=== PATIENT | male | born 1990 | race Two or more races ===

== ENCOUNTER 2023-12-31 08:41 | Outpatient (OUT) | payer BC, SELFPAY ==
[2023-12-31 08:57] LABS: Basophils Absolute Auto 0.1 10^3/uL (0.0-0.1); Basophils Percent Auto 0.8 % (0.2-2.0); Eosinophils Absolute Auto 0.2 10^3/uL (0.0-0.7); Eosinophils Percent Auto 3.3 % (0.9-7.0); Hematocrit 43.5 % (42.0-54.0); Hemoglobin 14.6 g/dL (14.0-18.0); Immature Granulocytes Abs Auto 0.02 10^3/uL (0.00-0.03); Immature Granulocytes Pct Auto 0.3 % (0.0-0.5); Lymphocytes Absolute Auto 1.5 10^3/uL (1.2-3.8); Mean Corpuscular HGB Conc 33.6 g/dL (29.9-35.2); Mean Corpuscular Hemoglobin 28.9 pg (25.9-34.0); Mean Corpuscular Volume 86.1 fL (80.0-94.0); Mean Platelet Volume 10.1 fL (9.5-13.5); Monocytes Absolute Auto 0.6 10^3/uL (0.3-0.8); Monocytes Percent Auto 8.4 % (1.7-12.0); Neutrophils Absolute Auto 4.8 10^3/uL (1.4-6.5); Neutrophils Percent Auto 66.2 % (43.0-75.0); Platelet Count 259 10^3/uL (150-450); Red Blood Count 5.05 10^6/uL (4.70-6.10); Red Cell Distribution Width 13.9 % (11.0-15.0); White Blood Count 7.3 10^3/uL (4.0-11.0)
[2023-12-31 09:15] LABS: Estimated Average Glucose 108 mg/dL; Glycohemoglobin A1C 5.4 % (4.5-6.2)
[2023-12-31 09:32] LABS: Alanine Aminotransferase 40 U/L (16-63); Albumin Globulin Ratio 0.9; Albumin Level 3.4 g/dL (3.4-5.0); Alkaline Phosphatase 110 U/L (46-116); Anion Gap 11.2; Aspartate Amino Transferase 25 U/L (15-37); BUN Creatinine Ratio 12.4; Bilirubin Direct 0.1 mg/dL (0.0-0.2); Bilirubin Total 0.6 mg/dL (0.2-1.0); Calcium 8.4 mg/dL (8.5-10.1); Carbon Dioxide 29.9 mmol/L (21.0-32.0); Chloride 103 mmol/L (98-107); Chol HDL Ratio 4.1; Cholesterol 151 mg/dL (<=200); Estimated GFR (African America >60 (>=60); Estimated GFR (Non-African Ame >60 (>=60); Globulin 3.9 g/dL; Glucose 102 mg/dL (74-106); HDL Cholesterol 37 mg/dL (40-60); Potassium 4.1 mmol/L (3.5-5.1); Sodium 140 mmol/L (136-145); Total Protein 7.3 g/dL (6.4-8.2); Triglycerides 76 mg/dL (<=150); VLDL CHOLESTEROL 15.2 mg/dL
== END 2023-12-31 08:42 | disposition home or self-care (01) ==
LOC: LAB 08:42
PROVIDERS: PCP Family Medicine; Visit Provider Family Medicine
DX: Z00.00 Encounter for general adult medical examination without abnormal findings (principal)
CPT/HCPCS: 36415; 80048; 80061; 80076; 83036; 84443; 85025

== ENCOUNTER 2024-01-05 20:00 | Outpatient (OUT) | payer BC, SELFPAY ==
--- OUTSIDE RECORDS SUMMARY | 2024-01-05 20:03 | XMS_ITS | CCD ---
Author Name Unknown Address [facility] [address] [place] [id number] Organization [facility] Care Team Providers Care Water Tester Name Role Phone DR VENECIA SMITH Attending Unavailable LUIS, DR VENECIA Lockwood Primary Care Unavailable DR VENECIA SMITH Admitting Unavailable TAI, DR LAURA Doe Consulting Unavailable LUIS, DR VENECIA Lockwood Consulting Unavailable VENECIA SMITH Attending Unavailable Problems Problem Classification Problem Date Documented Date Episodic/Chronic Spondylosis; intervertebral disc disorders; other back problems (1 source) Other intervertebral disc degeneration, lumbosacral region; Translations: [OTH IV DISC DEGEN LUMBOSACRAL RGN] Onset: 08-09-2022 Chronic Spondylosis; intervertebral disc disorders; other back problems (1 source) Lumbago with sciatica, left side; Translations: [LUMBAGO WITH SCIATICA LEFT SIDE] Onset: 08-09-2022 Episodic Results Test Name Value Interpretation Reference Range Facil ity XR LSPINE 2_3 VIEWSon 2021 XR LSPINE 2_3 VIEWS EXAMINATION: XR LSPINE 2_3 VIEWS HISTORY: Lumbago co-occurrent with right-side sciatica ; chronic low back pain radiating into legs COMPARISON: XR L-spine 07/28/2018 FINDINGS: BONES: Slight anterior wedging of T12 vertebral body and degenerative endplate changes. Unremarkable lumbar vertebral bodies. DISC SPACES: Minimal narrowing L5-S1. PARASPINOUS: Negative. No paraspinous abnormality is seen. OTHER: Negative. IMPRESSION: 1. L5-S1 minimal degenerative disc disease; not appreciably changed. 2. Grossly stable mild degenerative changes at T12, with limited evaluation of today's study. Electronically authenticated by: LAURA LUJAN Date: 2022-08-07 06:[address] [facility] CBC AUTO DIFFon 08-06-2022 BASO # 0.1 103/ul Normal 0.0-0.[address] [facility] Comment on above: Performed By: #### C BC #### [facility] [address] [address] [address] Chitra Meza Basophils/100 WBC (Bld) 0.8 % Normal 0.2-2.0 [facility] Comment on above: Performed By: #### C BC #### [facility] [address] [address] [address] Chitra Meza EO # 0.2 103/ul Normal 0.0-0.7 [facility] Comment on above: Performed By: #### C BC #### [facility] [address] [place] [address] Dr. Chitra Meza Eosinophils/100 WBC (Bld) 2.5 % Normal 0.9-7.0 [facility] Comment on above: Performed By: #### C BC #### [facility] [address] [place] [address] Dr. Chitra Meza Erythrocyte distribution width (RBC) [Ratio] 14.1 % Normal 11.0-15.0 [facility] Comment on above: Performed By: #### C BC #### [facility] [address] [place] [address] Dr. Chitra Meza Hematocrit (Bld) [Volume fraction] 43.4 % Normal 42.0-54.0 [facility] Comment on above: Performed By: #### C BC #### [facility] [address] [place] [address] Dr. Chitra Meza Hemoglobin (Bld) [Mass/Vol] 14.5 g/dL Normal 14.0-18.0 [facility] Comment on above: Performed By: #### C BC #### [facility] [address] [place] [address] Dr. Chitra Meza IG # 0.03 10e3/ul Normal 0.00-0.03 [facility] Comment on above: Performed By: #### C BC #### [facility] [address] [place] [address] Dr. Chitra Meza IG % 0.3 % Normal 0.0-0.5 [facility] Comment on above: Performed By: #### C BC #### [facility] [address] [place] [address] Dr. Chitra Meza LYMPH # 1.9 103/ul Normal 1.2-3.8 [facility] Comment on above: Performed By: #### C BC #### [facility] [address] [place] [address] Dr. Chitra Meza Lymphocytes/100 WBC (Bld) 22.1 % Normal 20.5-60.0 [facility] Comment on above: Performed By: #### C BC #### [facility] [address] [place] [address] Dr. Chitra Meza MANUAL DIFF REQ NO Normal [facility] Comment on above: Performed By: #### C BC #### [facility] [address] [place] [address] Dr. Chitra Meza MCH (RBC) [Entitic mass] 28.4 pg Normal 25.9-34.0 [facility] Comment on above: Performed By: #### C BC #### [facility] [address] [place] [address] Dr. Chitra Meza MCHC (RBC) [Mass/Vol] 33.4 g/dL Normal 29.9-35.2 [facility] Comment on above: Performed By: #### C BC #### [facility] [address] [place] [address] Dr. Chitra Meza MCV (RBC) [Entitic vol] 84.9 fL Normal 80.0-94.0 [facility] Comment on above: Performed By: #### C BC #### [facility] [address] [place] [address] Dr. Chitra Meaz MONO # 0.7 103/ul Normal 0.3-0.[address] [facility] Comment on above: Performed By: #### C BC #### [facility] [address] [place] [address] Dr. Chitra Meza Monocytes/100 WBC (Bld) 7.8 % Normal 1.7-12.0 [facility] Comment on above: Performed By: #### C BC #### [facility] [address] [address] [address] Chitra Meza NEUT # 5.8 103/ul Normal 1.4-6.5 [facility] Comment on above: Performed By: #### C BC #### [facility] [address] [address] [address] Chitra Meza Neutrophils/100 WBC (Bld) 66.5 % Normal 43.0-75.0 [facility] Comment on above: Performed By: #### C BC #### [facility] [address] [address] [address] Chitra Meza Platelet mean volume (Bld) [Entitic vol] 10.1 fL Normal 9.5-13.5 [facility] Comment on above: Performed By: #### C BC #### [facility] [address] [place] [address] Dr. Chitra Meza PLT 253 103/ul Normal 150-[address] [facility] Comment on above: Performed By: #### C BC #### [facility] [address] [address] [address] Chitra Meza RBC 5.11 106/ul Normal 4.70-6.[address] [facility] Comment on above: Performed By: #### C BC #### [facility] [address] [address] [address] Chitra Meza WBC 8.8 103/ul Normal 4.0-11.0 [facility] Comment on above: Performed By: #### C BC #### [facility] [address] [place] [address] Dr. Chitra Meza GLYCOHEMOGLOBIN A1Con 2021 ADA RECOMMENDATION SEE BELOW Normal [facility] Comment on above: Result Comment: ADA RECOMMENDED LIMIT 4.0 - 6.0 ADA THERAPEUTIC TARGET < 7.0 ACTION SUGGESTED > 7.0 Performed By: #### A 1C #### [facility] [address] [place] [address] Dr. Chitra Meza Glucose [Mass/Vol] 117 mg/dL Normal [facility] Comment on above: Performed By: #### A 1C #### [facility] [address] [address] [address] Chitra Meza HbA1c (Bld) [Mass fraction] 5.7 % Normal 4.5-6.2 [facility] Comment on above: Performed By: #### A 1C #### [facility] [address] [address] [address] Chitra Meza LIPID PROFILEon 08-06-2022 CHOL-HDL RATIO NORM SEE BELOW Normal [facility] Comment on above: Result Comment: 3.3 - 4.4 LOW RISK 4.4 - 7.1 AVERAGE RISK 7.1 - 11.0 MODERATE RISK >11.0 HIGH RISK Performed By: #### T SH, LIPID, LIVER, BMP #### [facility] [address] [address] [address] Chitra Meza Cholesterol [Mass/Vol] 161 mg/dL Normal <=200 [facility] Comment on above: Performed By: #### T SH, LIPID, LIVER, BMP #### [facility] [address] [address] [address] Chitra Meza Cholesterol in HDL [Mass/Vol] 37 mg/dL Critically low 40-60 [facility] Comment on above: Performed By: #### T SH, LIPID, LIVER, BMP #### [facility] [address] [place] [address] Dr. Chitra Meza Cholesterol in LDL [Mass/Vol] 107.6 mg/dL Normal [facility] Comment on above: Performed By: #### T SH, LIPID, LIVER, BMP #### [facility] [address] [address] [address] Chitra Meza Cholesterol.total/Cho lesterol in HDL [Mass ratio] 4.4 {ratio} Normal [facility] Comment on above: Performed By: #### T SH, LIPID, LIVER, BMP #### [facility] [address] [place] [address] Dr. Chitra Meza HDL NORMAL > or = 60 mg/dl - LOW CARDIOVASCULAR RISK <40 mg/dl - HIGH CARDIOVASCULAR RISK Normal [facility] Comment on above: Performed By: #### T SH, LIPID, LIVER, BMP #### [facility] [address] [address] [address] Chitra Meza LDL CALC NORMAL SEE BELOW Normal [facility] Comment on above: Result Comment: <100 mg/dl OPTIMAL 100 - 129 mg/dl NEAR OR ABOVE OPTIMAL 130 - 159 mg/dl BORDERLINE HIGH 160 - 189 mg/dl HIGH >190 mg/dl VERY HIGH Performed By: #### T SH, LIPID, LIVER, BMP #### [facility] [address] [address] [address] Chitra Meza Triglyceride [Mass/Vol] 82 mg/dL Normal <=150 [facility] Comment on above: Performed By: #### T SH, LIPID, LIVER, BMP #### [facility] [address] [place] [address] Dr. Chitra Meza VLDL CALC 16.4 mg/dL Normal [facility] Comment on above: Performed By: #### T SH, LIPID, LIVER, BMP #### [facility] [address] [place] [address] Dr. Chitra Meza LIVER PROFILEon 08-06-2022 Albumin [Mass/Vol] 3.6 g/dL Normal 3.4-5.0 [facility] Comment on above: Performed By: #### T SH, LIPID, LIVER, BMP #### [facility] [address] [place] [address] Dr. Chitra Meza Albumin/Globulin [Mass ratio] 1.0 {ratio} Normal [facility] Comment on above: Performed By: #### T SH, LIPID, LIVER, BMP #### [facility] [address] [place] [address] Dr. Chitra Meza ALP [Catalytic activity/Vol] 123 U/L Critically high 46-[address] [facility] Comment on above: Performed By: #### T SH, LIPID, LIVER, BMP #### [facility] [address] [place] [address] Dr. Chitra Meza ALT [Catalytic activity/Vol] 36 U/L Normal 16-63 [facility] Comment on above: Performed By: #### T SH, LIPID, LIVER, BMP #### [facility] [address] [address] [address] Chitra Meza AST [Catalytic activity/Vol] 18 U/L Normal 15-37 [facility] Comment on above: Performed By: #### T SH, LIPID, LIVER, BMP #### [facility] [address] [place] [address] Dr. Chitra Meza BILI, CONJUGATED 0.1 mg/dL Normal 0.0-0.2 [facility] Comment on above: Performed By: #### T SH, LIPID, LIVER, BMP #### [facility] [address] [place] [address] Dr. Chitra Meza Bilirubin [Mass/Vol] 0.3 mg/dL Normal 0.2-1.0 [facility] Comment on above: Performed By: #### T SH, LIPID, LIVER, BMP #### [facility] [address] [place] [address] Dr. Chitra Meza Globulin (S) [Mass/Vol] 3.7 g/dL Normal [facility] Comment on above: Performed By: #### T SH, LIPID, LIVER, BMP #### [facility] [address] [place] [address] Dr. Chitra Mzea Protein [Mass/Vol] 7.3 g/dL Normal 6.4-8.2 [facility] Comment on above: Performed By: #### T SH, LIPID, LIVER, BMP #### [facility] [address] [place] [address] Dr. Chitra Meza PROF CHEM 8 (BAS METB)on Anion gap [Moles/Vol] 11.1 mmol/L Normal [facility] Comment on above: Performed By: #### T SH, LIPID, LIVER, BMP #### [facility] [address] [place] [address] Dr. Chitra Meza Calcium [Mass/Vol] 8.6 mg/dL Normal 8.5-10.1 [facility] Comment on above: Performed By: #### T SH, LIPID, LIVER, BMP #### [facility] [address] [place] [address] Dr. Chitra Meza Chloride [Moles/Vol] 103 mmol/L Normal 98-[address] [facility] Comment on above: Performed By: #### T SH, LIPID, LIVER, BMP #### [facility] [address] [address] [address] Chitra Meza CO2 [Moles/Vol] 29.2 mmol/L Normal 21.0-32.0 [facility] Comment on above: Performed By: #### T SH, LIPID, LIVER, BMP #### [facility] [address] [address] [address] Chitra Meza Creatinine [Mass/Vol] 0.81 mg/dL Normal 0.70-1.[address] [facility] Comment on above: Performed By: #### T SH, LIPID, LIVER, BMP #### [facility] [address] [place] [address] Dr. Chitra Meza EGFR-AF IRAQI >60 Normal >=60 [facility] Comment on above: Performed By: #### T SH, LIPID, LIVER, BMP #### [facility] [address] [place] [address] Dr. Chitra Meza EGFR-NON AF IRAQI >60 Normal >=60 [facility] Comment on above: Performed By: #### T SH, LIPID, LIVER, BMP #### [facility] [address] [place] [address] Dr. Chitra Meza Glucose [Mass/Vol] 99 mg/dL Normal 74-106 [facility] Comment on above: Performed By: #### T SH, LIPID, LIVER, BMP #### [facility] [address] [address] [address] Chitra Meza Potassium [Moles/Vol] 4.3 mmol/L Normal 3.5-5.[address] [facility] Comment on above: Performed By: #### T SH, LIPID, LIVER, BMP #### [facility] [address] [place] [address] Dr. Chitra Meza Sodium [Moles/Vol] 139 mmol/L Normal 136-145 [facility] Comment on above: Performed By: #### T SH, LIPID, LIVER, BMP #### [facility] [address] [place], [place] [address] Dr. Chitra Meza Urea nitrogen [Mass/Vol] 18.0 mg/dL Normal 7.0-18.0 [facility] Comment on above: Performed By: #### T SH, LIPID, LIVER, BMP #### [facility] [address] [place], [place] [address] Dr. Chitra Meza Urea nitrogen/Creatinine [Mass ratio] 22.2 mg/mg Normal [facility] Comment on above: Performed By: #### T SH, LIPID, LIVER, BMP #### [facility] [address] [place], [place] [address] Dr. Chitra Meza TSHon 08-06-2022 TSH 0.449 uIU/mL Normal 0.358-3.740 [facility] Comment on above: Performed By: #### T SH, LIPID, LIVER, BMP #### [facility] [address] [place], [place] [address] Dr. Chitra Meza Encounters Encounter Date Encounter Type Care Provider Facility Start: 12-18-2023 End: 12-18-2023 ambulatory VENECIA SMITH Not Available Start: 08-09-2022 Encounter for genera l adult medical examination without abnormal findings DR VENECIA SMITH [facility] Start: 08-06-2022 End: 08-07-[address] VENECIA SMITH Facility: Start: 08-06-2022 End: 08-07-2022 Encounter for general adult medical examination without abnormal findings DR VENECIA SMITH Facility:[facility] Payers Date Payer Category Payer Unknown [id number] 1990 Unknown [id number] 1961 Unknown [id number] Summary Purpose Family History No Family History Records FoundNo Family History Records Found Advance Directives No Advanced Directives Records FoundNo Advanced Directives Records Found Additional Source Comments (unrecognized sect ion and content) No Status Records FoundNo Status Records Found INFORMATION SOURCE (unrecogn ized section and content) DATE CREATED AUTHOR 10/11/2022 [facility] DATE CREATED AUTHOR AUTHOR'S LAURA FERRARI 12/20/2023 [facility] FOR RECORDS PERTAINING TO PATIENTS WHO ARE OR HAVE BEEN ENROLLED IN A CHEMICAL DEPENDENCY/SUBSTANCEABUSE PROGRAM, SOME INFORMATION MAY BE OMITTED. This clinical summary was aggregated from multiple sources. Caution should be exercised in using it in the provision of clinical care. This summary normalizes information from multiple sources, and as a consequence, information in this document may materially change the coding, format and clinical context of patient data. In addition, data may be omitted in some cases. CLINICAL DECISIONS SHOULD BE BASED ON THE PRIMARY CLINICAL RECORDS. [facility] [employer] provides no warranty or guarantee of the accuracy or completeness of information in this document.
== END 2024-01-05 20:01 | disposition home or self-care (01) ==
LOC: SLEEP 20:01
PROVIDERS: PCP Family Medicine; Visit Provider Family Medicine
DX: G47.33 Obstructive sleep apnea (adult) (pediatric) (principal); G47.11 Idiopathic hypersomnia with long sleep time
CPT/HCPCS: 95810

== ENCOUNTER 2024-02-02 20:01 | Outpatient (OUT) | payer BC, SELFPAY ==
--- OUTSIDE RECORDS SUMMARY | 2024-02-02 20:07 | XMS_ITS | CCD ---
Author Organization [facility] Care Team Providers Care Inspector Shells Name Role Phone DR VENECIA SMITH Attending Unavailable LUIS, DR VENECIA Lockwood Primary Care Unavailable DR VENECIA SMITH Admitting Unavailable TAI, DR LAURA Doe Consulting Unavailable LUIS, DR VENECIA Lockwood Consulting Unavailable VENECIA SMITH Attending VENECIA Crain Attending Unavailable FLASH DOZIER Attending Unavailable VENECIA SMITH Referring Unavailable Problems Problem Classification Problem Date Documented [...] LAURA LUJAN Date: 2022-08-07 06:55 Normal [facility] CBC AUTO DIFFon 08-06-2022 BASO # 0.1 103/ul Normal 0.0-0.1 [facility] Comment on above: Performed By: #### C BC #### [facility] [address] [place] [address] Dr. Chitra Meza Basophils/100 WBC (Bld) 0.8 % Normal 0.2-2.0 [facility] Comment on above: Performed By: #### C BC #### [facility] [address] [place] [address] Dr. Chitra Meza EO # 0.2 103/ul Normal 0.0-0.7 [facility] Comment on above: Performed By: #### C BC #### [facility] [address] [place] [address] Dr. Chitra Meza Eosinophils/100 WBC (Bld) 2.5 % Normal 0.9-7.0 [facility] Comment on above: Performed By: #### C BC #### [facility] [address] [place] [address] Dr. Chitra Meza Erythrocyte distribution width (RBC) [Ratio] 14.1 % Normal 11.0-15.0 [facility] Comment on above: Performed By: #### C BC #### [facility] [address] [place] [address] Dr. Chitra Meza Hematocrit (Bld) [Volume fraction] 43.4 % Normal 42.0-54.0 [facility] Comment on above: Performed By: #### C BC #### [facility] [address] [place] [address] Dr. Chitra Meza Hemoglobin (Bld) [Mass/Vol] 14.5 g/dL Normal 14.0-18.0 [facility] Comment on above: Performed By: #### C BC #### [facility] [address] [place] [address] Dr. Chitra Meza IG # 0.03 10e3/ul Normal 0.00-0.03 [facility] Comment on above: Performed By: #### C BC #### [facility] [address] [place] [address] Dr. Chitra Meza IG % 0.3 % Normal 0.0-0.5 [facility] Comment on above: Performed By: #### C BC #### [facility] [address] [address] [address] Chitra Meza LYMPH # 1.9 103/ul Normal 1.2-3.8 [facility] Comment on above: Performed By: #### C BC #### [facility] [address] [address] [address] Chitra Meza Lymphocytes/100 WBC (Bld) 22.1 % Normal 20.5-60.0 [facility] Comment on above: Performed By: #### C BC #### [facility] [address] [address] [address] Chitra Meza MANUAL DIFF REQ NO Normal [facility] Comment on above: Performed By: #### C BC #### [facility] [address] [place] [address] Dr. Chitra Meza MCH (RBC) [Entitic mass] 28.4 pg Normal 25.9-34.0 [facility] Comment on above: Performed By: #### C BC #### [facility] [address] [place] [address] Dr. Chitra Meza MCHC (RBC) [Mass/Vol] 33.4 g/dL Normal 29.9-35.2 [facility] Comment on above: Performed By: #### C BC #### [facility] [address] [place] [address] Dr. Chitra Meza MCV (RBC) [Entitic vol] 84.9 fL Normal 80.0-94.0 [facility] Comment on above: Performed By: #### C BC #### [facility] [address] [place] [address] Dr. Chitra Meza MONO # 0.7 103/ul Normal 0.3-0.8 [facility] Comment on above: Performed By: #### C BC #### [facility] [address] [place] [address] Dr. Chitra Meza Monocytes/100 WBC (Bld) 7.8 % Normal 1.7-12.0 [facility] Comment on above: Performed By: #### C BC #### [facility] [address] [address] [address] Chitra Meza NEUT # 5.8 103/ul Normal 1.4-6.5 [facility] Comment on above: Performed By: #### C BC #### [facility] [address] [address] [address] Chitra Meza Neutrophils/100 WBC (Bld) 66.5 % Normal 43.0-75.0 [facility] Comment on above: Performed By: #### C BC #### [facility] [address] [address] [address] Chitra Meza Platelet mean volume (Bld) [Entitic vol] 10.1 fL Normal 9.5-13.5 [facility] Comment on above: Performed By: #### C BC #### [facility] [address] [address] [address] Chitra Meza PLT 253 103/ul Normal 150-450 [facility] Comment on above: Performed By: #### C BC #### [facility] [address] [address] [address] Chitra Meza RBC 5.11 106/ul Normal 4.70-6.10 [facility] Comment on above: Performed By: #### C BC #### [facility] [address] [address] [address] Chitra Meza WBC 8.8 103/ul Normal 4.0-11.0 [facility] Comment on above: Performed By: #### C BC #### [facility] [address] [address] [address] Chitra Meza GLYCOHEMOGLOBIN A1Con 2021 ADA RECOMMENDATION SEE BELOW Normal [facility] Comment on above: Result Comment: ADA RECOMMENDED LIMIT 4.0 - 6.0 ADA THERAPEUTIC TARGET < 7.0 ACTION SUGGESTED > 7.0 Performed By: #### A 1C #### [facility] [address] [place] [address] Dr. Chitra Meza Glucose [Mass/Vol] 117 mg/dL Normal [facility] Comment on above: Performed By: #### A 1C #### [facility] [address] [address] [address] Chitra Meza HbA1c (Bld) [Mass fraction] 5.7 % Normal 4.5-6.2 [facility] Comment on above: Performed By: #### A 1C #### [facility] [address] [address] [address] Chitra Meza LIPID PROFILEon 08-06-2022 CHOL-HDL RATIO NORM SEE BELOW Normal [facility] Comment on above: Result Comment: 3.3 - 4.4 LOW RISK 4.4 - 7.1 AVERAGE RISK 7.1 - 11.0 MODERATE RISK >11.0 HIGH RISK Performed By: #### T SH, LIPID, LIVER, BMP #### [facility] [address] [address] [address] Chitra Meza Cholesterol [Mass/Vol] 161 mg/dL Normal <=200 [facility] Comment on above: Performed By: #### T SH, LIPID, LIVER, BMP #### [facility] [address] [address] [address] Chitra Meza Cholesterol in HDL [Mass/Vol] 37 mg/dL Critically low 40-60 [facility] Comment on above: Performed By: #### T SH, LIPID, LIVER, BMP #### [facility] [address] [address] [address] Chitra Meza Cholesterol in LDL [Mass/Vol] 107.6 mg/dL Normal [facility] Comment on above: Performed By: #### T SH, LIPID, LIVER, BMP #### [facility] [address] [address] [address] Chitra Meza Cholesterol.total/Cho lesterol in HDL [Mass ratio] 4.4 {ratio} Normal [facility] Comment on above: Performed By: #### T SH, LIPID, LIVER, BMP #### [facility] [address] [address] [address] Chitra Meza HDL NORMAL > or = 60 mg/dl - LOW CARDIOVASCULAR RISK <40 mg/dl - HIGH CARDIOVASCULAR RISK Normal [facility] Comment on above: Performed By: #### T SH, LIPID, LIVER, BMP #### [facility] [address] [address] [address] Chitra Meza LDL CALC NORMAL SEE BELOW Normal [facility] Comment on above: Result Comment: <100 mg/dl OPTIMAL 100 - 129 mg/dl NEAR OR ABOVE OPTIMAL 130 - 159 mg/dl BORDERLINE HIGH 160 - 189 mg/dl HIGH >190 mg/dl VERY HIGH Performed By: #### T SH, LIPID, LIVER, BMP #### [facility] [address] [address] [address] Chitra Meza Triglyceride [Mass/Vol] 82 mg/dL Normal <=150 [facility] Comment on above: Performed By: #### T SH, LIPID, LIVER, BMP #### [facility] [address] [address] [address] Chitra Meza VLDL CALC 16.4 mg/dL Normal [facility] Comment on above: Performed By: #### T SH, LIPID, LIVER, BMP #### [facility] [address] [address] [address] Chitra Meza LIVER PROFILEon 08-06-2022 Albumin [Mass/Vol] 3.6 g/dL Normal 3.4-5.0 [facility] Comment on above: Performed By: #### T SH, LIPID, LIVER, BMP #### [facility] [address] [place] [address] Dr. Chitra Meza Albumin/Globulin [Mass ratio] 1.0 {ratio} Normal [facility] Comment on above: Performed By: #### T SH, LIPID, LIVER, BMP #### [facility] [address] [place] [address] Dr. Chitra Meza ALP [Catalytic activity/Vol] 123 U/L Critically high 46-116 [facility] Comment on above: Performed By: #### T SH, LIPID, LIVER, BMP #### [facility] [address] [address] [address] Chitra Meza ALT [Catalytic activity/Vol] 36 U/L Normal 16-63 [facility] Comment on above: Performed By: #### T SH, LIPID, LIVER, BMP #### [facility] [address] [place] [address] Dr. Chitra Meza AST [Catalytic activity/Vol] 18 U/L Normal 15-37 [facility] Comment on above: Performed By: #### T SH, LIPID, LIVER, BMP #### [facility] [address] [place] [address] Dr. Chitra Meza BILI, CONJUGATED 0.1 mg/dL Normal 0.0-0.2 [facility] Comment on above: Performed By: #### T SH, LIPID, LIVER, BMP #### [facility] [address] [place] [address] Dr. Chitra Meza Bilirubin [Mass/Vol] 0.3 mg/dL Normal 0.2-1.0 [facility] Comment on above: Performed By: #### T SH, LIPID, LIVER, BMP #### [facility] [address] [place] [address] Dr. Chitra Meza Globulin (S) [Mass/Vol] 3.7 g/dL Normal [facility] Comment on above: Performed By: #### T SH, LIPID, LIVER, BMP #### [facility] [address] [place] [address] Dr. Chitra Meza Protein [Mass/Vol] 7.3 g/dL Normal 6.4-8.2 [facility] Comment on above: Performed By: #### T SH, LIPID, LIVER, BMP #### [facility] [address] [place] [address] Dr. Chitra Meza PROF CHEM 8 (BAS METB)on Anion gap [Moles/Vol] 11.1 mmol/L Normal [facility] Comment on above: Performed By: #### T SH, LIPID, LIVER, BMP #### [facility] [address] [place] [address] Dr. Chitra Meza Calcium [Mass/Vol] 8.6 mg/dL Normal 8.5-10.1 [facility] Comment on above: Performed By: #### T SH, LIPID, LIVER, BMP #### [facility] [address] [place] [address] Dr. Chitra Meza Chloride [Moles/Vol] 103 mmol/L Normal 98-107 [facility] Comment on above: Performed By: #### T SH, LIPID, LIVER, BMP #### [facility] [address] [address] [address] Chitra Meza CO2 [Moles/Vol] 29.2 mmol/L Normal 21.0-32.0 [facility] Comment on above: Performed By: #### T SH, LIPID, LIVER, BMP #### [facility] [address] [address] [address] Chitra Meza Creatinine [Mass/Vol] 0.81 mg/dL Normal 0.70-1.30 [facility] Comment on above: Performed By: #### T JANUARY, LIPID, LIVER, BMP #### [facility] [address] [place] [address] Dr. Chitra Meza EGFR-AF CYMRAES >60 Normal >=60 [facility] Comment on above: Performed By: #### T JANUARY, LIPID, LIVER, BMP #### [facility] [address] [place] [address] Dr. Chitra Meza EGFR-NON AF CYMRAES >60 Normal >=60 [facility] Comment on above: Performed By: #### T JANUARY, LIPID, LIVER, BMP #### [facility] [address] [place] [address] Dr. Chitra Meza Glucose [Mass/Vol] 99 mg/dL Normal 74-106 [facility] Comment on above: Performed By: #### T JANUARY, LIPID, LIVER, BMP #### [facility] [address] [place] [address] Dr. Chitra Meza Potassium [Moles/Vol] 4.3 mmol/L Normal 3.5-5.1 [facility] Comment on above: Performed By: #### T SH, LIPID, LIVER, BMP #### [facility] [address] [place] [address] Dr. Chitra Meza Sodium [Moles/Vol] 139 mmol/L Normal 136-145 [facility] Comment on above: Performed By: #### T SH, LIPID, LIVER, BMP #### [facility] [address] [place], [place] [address] Dr. Chitra Meza Urea nitrogen [Mass/Vol] 18.0 mg/dL Normal 7.0-18.0 [facility] Comment on above: Performed By: #### T SH, LIPID, LIVER, BMP #### [facility] [address] [place], [place] [address] Dr. Chitra Meza Urea nitrogen/Creatinine [Mass ratio] 22.2 mg/mg Normal [facility] Comment on above: Performed By: #### T SH, LIPID, LIVER, BMP #### [facility] [address] [place], [place] [address] Dr. Chitra Meza TSHon 08-06-2022 TSH 0.449 uIU/mL Normal 0.358-3.740 [facility] Comment on above: Performed By: #### T SH, LIPID, LIVER, BMP #### [facility] [address] [place], [place] [address] Dr. Chitra Meza Encounters Encounter Date Encounter Type Care Provider Facility Start: 01-14-2024 End: 01-15-2024 ambulatory FLASH DOZIER Not Available Start: 12-18-2023 End: 12-18-2023 ambulatory VENECIA SMITH Not Available Start: 08-09-2022 Encounter for genera l adult medical examination without abnormal findings DR VENECIA SMITH [facility] Start: 08-06-2022 End: 08-07-[address] VENECIA SMITH Facility:[facility] Start: 08-06-2022 End: 08-07-2022 Encounter for general adult medical examination without abnormal findings DR VENECIA SMITH Facility:[facility] Payers Date Payer Category Payer Unknown [id number] [id number] 1988 Unknown [id number] [id number] [id number] 1988 Unknown [id number] [id number] [id number] 1988 Unknown [id number] 1959 Unknown [id number] Summary Purpose Family History No Family History Records FoundNo Family History Records Found Advance Directives No Advanced Directives Records FoundNo Advanced Directives Records Found Additional Source Comments (unrecognized sect ion and content) No Status Records FoundNo Status Records Found INFORMATION SOURCE (unrecogn ized section and content) DATE CREATED AUTHOR 10/11/2022 [facility] DATE CREATED AUTHOR AUTHOR'S ORGANIZ ATION 01/18/2024 [facility] FOR RECORDS PERTAINING TO PATIENTS WHO [...] BE BASED ON THE PRIMARY CLINICAL RECORDS. [facility] [employer] provides no warranty or guarantee of the accuracy or completeness of information in this document.
== END 2024-02-02 20:02 | disposition home or self-care (01) ==
LOC: SLEEP 20:01
PROVIDERS: PCP Family Medicine; Visit Provider Family Medicine
DX: G47.33 Obstructive sleep apnea (adult) (pediatric) (principal)
CPT/HCPCS: 95811

== ENCOUNTER 2024-11-04 09:54 | Outpatient (OUT) | payer BC, SELFPAY ==
--- OUTSIDE RECORDS SUMMARY | 2024-11-04 10:15 | XMS_ITS | CCD ---
Author Organization [facility] Care Team Providers Care Mri Specialist Name Role Phone DR BETO SMITH Attending Unavailable LUIS, DR BETO Lockwood Primary Care Unavailable LUIS, DR BETO Lockwood Admitting Unavailable ZIRADHA, DR LAURA Deo Consulting Unavailable LUIS, DR BETO Lockwood Consulting Unavailable LUIS, BETO Attending Unavailable LUIS, BETO Attending Unavailable FLASH DOZIER Attending Unavailable BETO SMITH Referring Unavailable LUIS, BETO Attending Unavailable LUIS, BETO Attending Unavailable KATHERINE, JOO Ga Attending Unavailable KATHERINE, JOO Ga Attending Unavailable Beto Smith MD Primary Care Provider Beto Smith MD Unavailable Medications Current Medications Medication Drug Class(es) Dates Sig (Normalized) Sig (Original) celecoxib 200 mg oral capsule (7 sources) Nonsteroidal Anti-inflammatory Drug Start: 12-18-2023 End: 11-03-2024 take 1 capsule by mouth twice daily as needed for pain celecoxib (CeleBREX) 200 MG capsule Indications: Degenerative disc disease at L5-S1 level Take 1 capsule (200 mg) by mouth 2 (two) times a day as needed for mild pain Take with food 60 capsule 2 12/18/2023 11/03/2024 Discontinued ammonium lactate 120 mg/ml topical cream (7 sources) Start: 04-26-2024 End: 04-26-2025 ammonium lactate (Amlactin) 12 % cream Indications: Corns and callosities Apply topically Daily 140 g 3 04/26/2024 04/26/2025 Active methocarbamol 750 mg oral tablet (7 sources) Muscle Relaxant Start: 12-18-2023 End: 11-03-2024 take 1 tablet by mouth four times daily as needed for muscle spasms methocarbamol (Robaxin) 750 MG tablet Indications: Degenerative disc disease at L5-S1 level Take 1 tablet (750 mg) by mouth 4 (four) times a day as needed for muscle spasms 60 tablet 1 12/18/2023 11/03/2024 Discontinued phentermine hydrochloride 37.5 mg oral tablet (7 sources) Sympathomimetic Amine Anorectic Start: 04-13-2024 End: 11-03-2024 take 1 tablet by mouth before mealtime phentermine (Adipex-P) 37.5 MG tablet Indications: Morbid obesity due to excess calories (CMS/HCC) Take 1 tablet (37.5 mg) by mouth in the morning. Take before meals. 30 tablet 04/13/2024 11/03/2024 Discontinued Semaglutide-Weight Management (Wegovy) 0.25 MG/0.5ML solution auto-injector (2 sources) Start: 11-03-2024 Semaglutide-Weight Management (Wegovy) 0.25 MG/0.5ML solution auto-injector Indications: Class 3 severe obesity due to excess calories without serious comorbidity with body mass index (BMI) of 50.0 to 59.9 in adult ([facility]) 0.25 mg SC weekly x 4 weeks, then 0.5 mg weekly 2 mL 5 11/03/2024 Active Problems Active Problems Problem Classification Problem Date Documented Da te Episodic/Chronic Mycoses (2 sources) Tinea pedis; Translations: [Tinea pedis] 07-05-2024 Episodic Other congenital anomalies (2 sources) Porokeratosis; Translations: [Other specified congenital malformations of skin] 07-05-2024 Chronic Other connective tissue disease (2 sources) Pain in right foot; Translations: [Pain in right foot] 07-05-2024 Episodic Other gastrointestinal disorders (7 sources) Irritable bowel syndrome with diarrhea; Translations: [Irritable bowel syndrome with diarrhea] Onset: 12-18-2023 03-19-2024 Chronic Other nutritional; endocrine; and metabolic disorders (5 sources) Morbid obesity; Translations: [Morbid (severe) obesity due to excess calories] Onset: 12-18-2023 12-18-2023 Chronic Other nutritional; endocrine; and metabolic disorders (4 sources) Severe obesity; Translations: [Class 3 severe obesity due to excess calories without serious comorbidity with body mass index (BMI) of 50.0 to 59.9 in adult (CMS/HCC)] Onset: 12-18-2023 11-03-2024 Chronic Residual codes; unclassified (7 sources) Obstructive sleep apnea syndrome; Translations: [Obstructive sleep apnea (adult) (pediatric)] Onset: 12-18-2023 01-14-2024 Chronic Spondylosis; intervertebral disc disorders; other back problems (8 sources) Other intervertebral disc degeneration, lumbosacral region; Translations: [Degeneration of lumbosacral intervertebral disc] Onset: 08-09-2022 12-18-2023 Chronic Spondylosis; intervertebral disc disorders; other back problems (1 source) Lumbago with sciatica, left side; Translations: [LUMBAGO WITH SCIATICA LEFT SIDE] Onset: 08-09-2022 Episodic Past or Other Problems Problem Classification Problem Date Documented Da te Episodic/Chronic Other and unspecified benign neoplasm (7 sources) Lipoma of right upper limb; Translations: [Benign lipomatous neoplasm of skin and subcutaneous tissue of right arm] Onset: 12-18-2023 12-18-2023 Episodic Other inflammatory condition of skin (7 sources) Seborrheic dermatitis; Translations: [Seborrheic dermatitis, unspecified] Onset: 12-18-2023 12-18-2023 Episodic Other skin disorders (7 sources) Callosity; Translations: [Corns and callosities] Onset: 03-19-2024 Resolved: 11-03-2024 03-19-2024 Episodic Results Test Name Value Interpretation Reference [...] LAURA LUJAN Date: 2022-08-07 06:55 Normal [facility] CBC AUTO DIFFon 08-06-2022 BASO # 0.1 103/ul Normal 0.0-0.1 [facility] Comment on above: Performed By: #### C BC #### [facility] [address] [place] [address] Dr. Chitra Meza Basophils/100 WBC (Bld) 0.8 % Normal 0.2-2.0 [facility] Comment on above: Performed By: #### C BC #### [facility] [address] [place] [address] Dr. Chitra Meza EO # 0.2 103/ul Normal 0.0-0.7 [facility] Comment on above: Performed By: #### C BC #### [facility] [address] [place] [address] Dr. Chitra Meza Eosinophils/100 WBC (Bld) 2.5 % Normal 0.9-7.0 [facility] Comment on above: Performed By: #### C BC #### [facility] [address] [place] [address] Dr. Chitra Meza Erythrocyte distribution width (RBC) [Ratio] 14.1 % Normal 11.0-15.0 [facility] Comment on above: Performed By: #### C BC #### [facility] [address] [place] [address] Dr. Chitra Meza Hematocrit (Bld) [Volume fraction] 43.4 % Normal 42.0-54.0 [facility] Comment on above: Performed By: #### C BC #### [facility] [address] [place] [address] Dr. Chitra Meza Hemoglobin (Bld) [Mass/Vol] 14.5 g/dL Normal 14.0-18.0 [facility] Comment on above: Performed By: #### C BC #### [facility] [address] [place] [address] Dr. Chitra Meza IG # 0.03 10e3/ul Normal 0.00-0.03 [facility] Comment on above: Performed By: #### C BC #### [facility] [address] [place] [address] Dr. Chitra Meza IG % 0.3 % Normal 0.0-0.5 [facility] Comment on above: Performed By: #### C BC #### [facility] [address] [place] [address] Dr. Chitra Meza LYMPH # 1.9 103/ul Normal 1.2-3.8 [facility] Comment on above: Performed By: #### C BC #### [facility] [address] [place] [address] Dr. Chitra Meza Lymphocytes/100 WBC (Bld) 22.1 % Normal 20.5-60.0 [facility] Comment on above: Performed By: #### C BC #### [facility] [address] [place] [address] Dr. Chitra Meza MANUAL DIFF REQ NO Normal [facility] Comment on above: Performed By: #### C BC #### [facility] [address] [place] [address] Dr. Chitra Meza MCH (RBC) [Entitic mass] 28.4 pg Normal 25.9-34.0 [facility] Comment on above: Performed By: #### C BC #### [facility] [address] [place] [address] Dr. Chitra Meza MCHC (RBC) [Mass/Vol] 33.4 g/dL Normal 29.9-35.2 [facility] Comment on above: Performed By: #### C BC #### [facility] [address] [place] [address] Dr. Chitra Meza MCV (RBC) [Entitic vol] 84.9 fL Normal 80.0-94.0 [facility] Comment on above: Performed By: #### C BC #### [facility] [address] [place] [address] Dr. Chitra Meza MONO # 0.7 103/ul Normal 0.3-0.8 [facility] Comment on above: Performed By: #### C BC #### [facility] [address] [place] [address] Dr. Chitra Meza Monocytes/100 WBC (Bld) 7.8 % Normal 1.7-12.0 [facility] Comment on above: Performed By: #### C BC #### [facility] [address] [place] [address] Dr. Chitra Meza NEUT # 5.8 103/ul Normal 1.4-6.5 [facility] Comment on above: Performed By: #### C BC #### [facility] [address] [place] [address] Dr. Chitra Meza Neutrophils/100 WBC (Bld) 66.5 % Normal 43.0-75.0 [facility] Comment on above: Performed By: #### C BC #### [facility] [address] [place] [address] Dr. Chitra Meza Platelet mean volume (Bld) [Entitic vol] 10.1 fL Normal 9.5-13.5 [facility] Comment on above: Performed By: #### C BC #### [facility] [address] [place] [address] Dr. Chitra Meza PLT 253 103/ul Normal 150-450 [facility] Comment on above: Performed By: #### C BC #### [facility] [address] [place] [address] Dr. Chitra Meza RBC 5.11 106/ul Normal 4.70-6.10 [facility] Comment on above: Performed By: #### C BC #### [facility] [address] [place] [address] Dr. Chitra Meza WBC 8.8 103/ul Normal 4.0-11.0 [facility] Comment on above: Performed By: #### C BC #### [facility] [address] [place] [address] Dr. Chitra Meza GLYCOHEMOGLOBIN A1Con 2021 ADA RECOMMENDATION SEE BELOW Normal [facility] Comment on above: Result Comment: ADA RECOMMENDED LIMIT 4.0 - 6.0 ADA THERAPEUTIC TARGET < 7.0 ACTION SUGGESTED > 7.0 Performed By: #### A 1C #### [facility] [address] [place] [address] Dr. Chitra Meza Glucose [Mass/Vol] 117 mg/dL Normal [facility] Comment on above: Performed By: #### A 1C #### [facility] [address] [address] [address] Chitra Meza HbA1c (Bld) [Mass fraction] 5.7 % Normal 4.5-6.2 [facility] Comment on above: Performed By: #### A 1C #### [facility] [address] [address] [address] Chitra Meza LIPID PROFILEon 08-06-2022 CHOL-HDL RATIO NORM SEE BELOW Normal [facility] Comment on above: Result Comment: 3.3 - 4.4 LOW RISK 4.4 - 7.1 AVERAGE RISK 7.1 - 11.0 MODERATE RISK >11.0 HIGH RISK Performed By: #### T SH, LIPID, LIVER, BMP #### [facility] [address] [address] [address] Chitra Meza Cholesterol [Mass/Vol] 161 mg/dL Normal <=200 [facility] Comment on above: Performed By: #### T SH, LIPID, LIVER, BMP #### [facility] [address] [address] [address] Chitra Meza Cholesterol in HDL [Mass/Vol] 37 mg/dL Critically low 40-60 [facility] Comment on above: Performed By: #### T SH, LIPID, LIVER, BMP #### [facility] [address] [address] [address] Chitra Meza Cholesterol in LDL [Mass/Vol] 107.6 mg/dL Normal [facility] Comment on above: Performed By: #### T SH, LIPID, LIVER, BMP #### [facility] [address] [address] [address] Chitra Meza Cholesterol.total/Cho lesterol in HDL [Mass ratio] 4.4 {ratio} Normal [facility] Comment on above: Performed By: #### T SH, LIPID, LIVER, BMP #### [facility] [address] [address] [address] Chitra Meza HDL NORMAL > or = 60 mg/dl - LOW CARDIOVASCULAR RISK <40 mg/dl - HIGH CARDIOVASCULAR RISK Normal [facility] Comment on above: Performed By: #### T SH, LIPID, LIVER, BMP #### [facility] [address] [address] [address] Chitra Meza LDL CALC NORMAL SEE BELOW Normal [facility] Comment on above: Result Comment: <100 mg/dl OPTIMAL 100 - 129 mg/dl NEAR OR ABOVE OPTIMAL 130 - 159 mg/dl BORDERLINE HIGH 160 - 189 mg/dl HIGH >190 mg/dl VERY HIGH Performed By: #### T SH, LIPID, LIVER, BMP #### [facility] [address] [address] [address] Chitra Meza Triglyceride [Mass/Vol] 82 mg/dL Normal <=150 [facility] Comment on above: Performed By: #### T SH, LIPID, LIVER, BMP #### [facility] [address] [address] [address] Chitra Meza VLDL CALC 16.4 mg/dL Normal [facility] Comment on above: Performed By: #### T SH, LIPID, LIVER, BMP #### [facility] [address] [address] [address] Chitra Meza LIVER PROFILEon 08-06-2022 Albumin [Mass/Vol] 3.6 g/dL Normal 3.4-5.0 [facility] Comment on above: Performed By: #### T SH, LIPID, LIVER, BMP #### [facility] [address] [address] [address] Chitra Meza Albumin/Globulin [Mass ratio] 1.0 {ratio} Normal [facility] Comment on above: Performed By: #### T SH, LIPID, LIVER, BMP #### [facility] [address] [address] [address] Chitra Meza ALP [Catalytic activity/Vol] 123 U/L Critically high 46-116 [facility] Comment on above: Performed By: #### T SH, LIPID, LIVER, BMP #### [facility] [address] [address] [address] Chitra Meza ALT [Catalytic activity/Vol] 36 U/L Normal 16-63 [facility] Comment on above: Performed By: #### T SH, LIPID, LIVER, BMP #### [facility] [address] [address] [address] Chitra Meza AST [Catalytic activity/Vol] 18 U/L Normal 15-37 [facility] Comment on above: Performed By: #### T SH, LIPID, LIVER, BMP #### [facility] [address] [place] [address] Dr. Chitra Meza BILI, CONJUGATED 0.1 mg/dL Normal 0.0-0.2 [facility] Comment on above: Performed By: #### T SH, LIPID, LIVER, BMP #### [facility] [address] [place] [address] Dr. Chitra Meza Bilirubin [Mass/Vol] 0.3 mg/dL Normal 0.2-1.0 [facility] Comment on above: Performed By: #### T SH, LIPID, LIVER, BMP #### [facility] [address] [place] [address] Dr. Chitra Meza Globulin (S) [Mass/Vol] 3.7 g/dL Normal [facility] Comment on above: Performed By: #### T SH, LIPID, LIVER, BMP #### [facility] [address] [place] [address] Dr. Chitra Meza Protein [Mass/Vol] 7.3 g/dL Normal 6.4-8.2 [facility] Comment on above: Performed By: #### T SH, LIPID, LIVER, BMP #### [facility] [address] [place] [address] Dr. Chitra Meza PROF CHEM 8 (BAS METB)on Anion gap [Moles/Vol] 11.1 mmol/L Normal [facility] Comment on above: Performed By: #### T SH, LIPID, LIVER, BMP #### [facility] [address] [place] [address] Dr. Chitra Meza Calcium [Mass/Vol] 8.6 mg/dL Normal 8.5-10.1 [facility] Comment on above: Performed By: #### T SH, LIPID, LIVER, BMP #### [facility] [address] [address] [address] Chitra Meza Chloride [Moles/Vol] 103 mmol/L Normal 98-107 [facility] Comment on above: Performed By: #### T SH, LIPID, LIVER, BMP #### [facility] [address] [address] [address] Chitra Meza CO2 [Moles/Vol] 29.2 mmol/L Normal 21.0-32.0 [facility] Comment on above: Performed By: #### T SH, LIPID, LIVER, BMP #### [facility] [address] [address] [address] Chitra Meza Creatinine [Mass/Vol] 0.81 mg/dL Normal 0.70-1.30 [facility] Comment on above: Performed By: #### T SH, LIPID, LIVER, BMP #### [facility] [address] [address] [address] Chitra Meza EGFR-AF RUSSIAN >60 Normal >=60 [facility] Comment on above: Performed By: #### T SH, LIPID, LIVER, BMP #### [facility] [address] [address] [address] Chitra Meza EGFR-NON AF RUSSIAN >60 Normal >=60 [facility] Comment on above: Performed By: #### T SH, LIPID, LIVER, BMP #### [facility] [address] [address] [address] Chitra Meza Glucose [Mass/Vol] 99 mg/dL Normal 74-106 [facility] Comment on above: Performed By: #### T SH, LIPID, LIVER, BMP #### [facility] [address] [address] [address] Chitra Meza Potassium [Moles/Vol] 4.3 mmol/L Normal 3.5-5.1 [facility] Comment on above: Performed By: #### T SH, LIPID, LIVER, BMP #### [facility] [address] [address] [address] Chitra Meza Sodium [Moles/Vol] 139 mmol/L Normal 136-145 [facility] Comment on above: Performed By: #### T SH, LIPID, LIVER, BMP #### [facility] [address] [address] [address] Chitra Meza Urea nitrogen [Mass/Vol] 18.0 mg/dL Normal 7.0-18.0 [facility] Comment on above: Performed By: #### T SH, LIPID, LIVER, BMP #### [facility] [address] [address] [address] Chitra Meza Urea nitrogen/Creatinine [Mass ratio] 22.2 mg/mg Normal [facility] Comment on above: Performed By: #### T SH, LIPID, LIVER, BMP #### [facility] [address] [place] [address] Dr. Chitra Meza TSHon 08-06-2022 TSH 0.449 uIU/mL Normal 0.358-3.740 [facility] Comment on above: Performed By: #### T SH, LIPID, LIVER, BMP #### [facility] [address] [place] [address] Dr. Chitra Meza Vital Signs Date Time Vital Sign Value Performing Clinician Faci lity 11-03-2024 09:44-0500 Body height 165.1 cm Beto Smith MD Work Phone: [facility] 11-03-2024 09:44-0500 Body mass index (BMI) [Ratio] 52.25 kg/m2 Beto Smith MD Work Phone: [facility] 11-03-2024 09:44-0500 Body temperature 97.81 [degF] Beto Smith MD Work Phone: [facility] 11-03-2024 09:44-0500 Body weight 142.43 kg Beto Smith MD Work Phone: [facility] 11-03-2024 09:44-0500 Diastolic blood pressure 72 mm[Hg] Beto Smith MD Work Phone: [facility] 11-03-2024 09:44-0500 Heart rate 78 /min eBto Smith MD Work Phone: [facility] 11-03-2024 09:44-0500 Respiratory rate 18 /min Beto Smith MD Work Phone: [facility] 11-03-2024 09:44-0500 SaO2% (BldA) [Mass fraction] 97 % Beto Smith MD Work Phone: [facility] 11-03-2024 09:44-0500 Systolic blood pressure 126 mm[Hg] Beto Smith MD Work Phone: [facility] 07-05-2024 11:12-0400 Body height 165.1 cm Joo Murphy DPM Work Phone: [facility] 07-05-2024 11:12-0400 Body mass index (BMI) [Ratio] 51.92 kg/m2 Joo Rusher DPM Work Phone: [facility] 07-05-2024 11:12-0400 Body weight 141.52 kg Joocamila Murphy DPM Work Phone: [facility] Healthcare Encounters Encounter Date Encounter Type Care Provider Facility Start: 11-03-2024 End: 11-03-2024 Bamboo flowsheet Beto Smith MD Work Phone: [facility] Start: 11-03-2024 End: 11-03-2024 Bamboo flowsheet Beto Smith MD Work Phone: [facility] Start: 11-03-2024 End: 11-03-2024 Patient encounter procedure Beto Smith MD Work Phone: [facility] Healthcare Work Phone: Start: 11-03-2024 End: 11-03-2024 Periodic preventive med est patient 18-39 yrs Beto Smith MD Work Phone: [facility] Comment on above: Annual physical exam (Primary Dx); Class 3 severe obesity due to excess calories without serious comorbidity with body mass index (BMI) of 50.0 to 59.9 in adult ([facility]) Start: 07-07-2024 End: 07-07-2024 Telephone encounter Joo Ga Amador DPM Work Phone: [facility] Comment on above: Advice Only (Pain - Work Note) Start: 07-05-2024 End: 07-05-2024 Bamboo flowsheet Joo Murphy DPM Work Phone: [facility] Start: 07-05-2024 End: 07-05-2024 Bamboo flowsheet Joo Murphy DPM Work Phone: [facility] Start: 07-05-2024 End: 07-05-2024 Office outpatient visit 15 minutes Joo Murphy DPM Work Phone: [facility] Comment on above: Right foot pain (Leia melissa Dx); Porokeratosis; Tinea pedis of right foot Start: 07-05-2024 End: 07-05-2024 ambulatory JOO Ga KATHERINE Not Available Start: 04-26-2024 End: 04-26-2024 ambulatory JOO Ga KATHERINE Not Available Start: 04-13-2024 End: 04-13-2024 ambulatory BETO SMITH Not Available Start: 03-19-2024 End: 03-19-2024 ambulatory BETO SMITH Not Available Start: 01-14-2024 End: 01-14-2024 ambulatory FLASH DOZIER Not Available Start: 12-18-2023 Patient encounter procedure Joo Katherine DPM Work Phone: [facility] Start: 12-18-2023 End: 12-18-2023 ambulatory BETO SMITH Not Available Start: 08-09-2022 Encounter for genera l adult medical examination without abnormal findings DR BETO SMITH [facility] Start: 08-06-2022 End: 08-07-[address] BETO SMITH Facility:[facility] Start: 08-06-2022 End: 08-07-2022 Encounter for general adult medical examination without abnormal findings DR BETO SMITH Facility:[facility] Plan of Treatment Date Care Activity Detail Author Start: 05-05-2025 End: 05-05-2025 Patient encounter procedure 05/05/2025 10:30 AM EDT Office Visit [facility] [address] [place] [address] Beto Smith MD [address] [place] [address] [facility] Start: 11-03-2024 End: 11-03-2025 Basic metabolic 1998 panel - Serum or Plasma Basic metabolic panel Lab Routine Annual physical exam Expected: 11/03/2024 (Approximate), Expires: 11/03/2025 [facility] Comment on above: Expected: 11/03/2024 (Approximate), Expires: 11/03/2025 Start: 11-03-2024 End: 11-03-2025 CBC W Auto Differential panel - Blood CBC and differential Lab Routine Annual physical exam Expected: 11/03/2024 (Approximate), Expires: 11/03/2025 [facility] Comment on above: Expected: 11/03/2024 (Approximate), Expires: 11/03/2025 Start: 11-03-2024 End: 11-03-2025 Hemoglobin A1c/Hemoglobin.total in Blood Hemoglobin A1c Lab Routine Annual physical exam Expected: 11/03/2024 (Approximate), Expires: 11/03/2025 [facility] Work Phone: Comment on above: Expected: 11/03/2024 (Approximate), Expires: 11/03/2025 Start: 11-03-2024 End: 11-03-2025 Hepatic function 2000 panel - Serum or Plasma Hepatic function panel Lab Routine Annual physical exam Expected: 11/03/2024 (Approximate), Expires: 11/03/2025 [facility] Comment on above: Expected: 11/03/2024 (Approximate), Expires: 11/03/2025 Start: 11-03-2024 End: 11-03-2025 Lipid 1996 panel - Serum or Plasma Lipid panel Lab Routine Annual physical exam Expected: 11/03/2024 (Approximate), Expires: 11/03/2025 [facility] Comment on above: Expected: 11/03/2024 (Approximate), Expires: 11/03/2025 Start: 11-03-2024 End: 11-03-2025 Thyrotropin [Units/volume] in Serum or Plasma TSH Lab Routine Annual physical exam Expected: 11/03/2024 (Approximate), Expires: 11/03/2025 [facility] Comment on above: Expected: 11/03/2024 (Approximate), Expires: 11/03/2025 Start: 11-03-2024 End: 11-03-2024 Patient encounter procedure 11/03/2024 9:30 AM EST [facility] [address] [place] [address] Beto Smith MD [address] [place] [phone] Arrived [facility] Comment on above: Arrived Start: 09-22-2024 End: 09-22-2024 Patient encounter procedure 09/22/2024 8:00 AM EST [facility] [address] [place] [address] Beto Smith MD [address] [place] [phone] [facility] Start: 07-05-2024 End: 07-05-2024 Patient encounter procedure 07/05/2024 11:15 AM EDT Office Visit [facility] [address] [place] [id number] Joo Murphy DPM [address], [place] [id number] Arrived [facility] Comment on above: Arrived Start: 06-20-2024 Influenza vaccination Influenza Vacc ine (#1) [facility] Payers Date Payer Category Payer [facility] BCBS [id number] 2019 Unknown BCBS BCBS [id number] [id number] 2019-Present [phone] [address] [place] [address] [id number] 1988 Unknown [id number]. [id number] 1988 Unknown [id number]. 2.9 1988 Unknown [id number] [id number]. 2.9 1988 Unknown [id number] [id number]. 2.9 1988 Unknown [id number] [id number]. 2.9 1988 Unknown [id number] 2.16.840.1.987394.3.579. 2.9 1988 Unknown [id number] [id number]. 2.9 1988 Unknown [id number] [id number]. 2.9 1959 Unknown [id number] Social History Date Type Detail Facility Start: 01-14-2024 Tobacco smoking stat [facility] Never smoked tobacco [facility] Start: 01-14-2024 End: 07-05-2024 Tobacco use and exposure Smokeless tobacco non-user [facility] Start: 04-26-2024 End: 11-03-2024 Alcoholic beverage intake Current drinker of alcohol (finding) [facility] Start: 04-26-2024 End: 11-03-2024 History of Social function [facility] Start: 04-26-2024 End: 11-03-2024 Tobacco use panel [facility] Start: 1990 Sex assigned at Not on file [facility] Start: 04-25-2024 Gender identity Identifies as male gender (finding) [facility] Start: 04-25-2024 Sexual orientation Heterosexual (fin ding) [facility] Start: 07-05-2024 Tobacco smoking stat [facility] Ex-smoker [facility] End: 10-20-2009 History of tobacco use Current smoker [facility] End: 10-20-2009 History of tobacco use Cigarette Smoker [facility] History of Present illness Narrative 11-03-2024 Beto Smith MD - 11/03/2024 10:25 AM Davis Smith MD - 11/03/2024 10:24 AM Davis Smith MD - 11/03/2024 9:30 AM EST Note Date & Type Note Facility 11-03-2024 History of Presen t illness Narrative Associated Problem(s): Class 3 severe obesity due to excess calories without serious comorbidity with body mass index (BMI) of 50.0 to 59.9 in adult (CMS/HCC) Weight down 34 pounds. Try wegovy. Associated Problem(s): Annual physical exam Due for labs. Discussed proper diet and regular aerobic exercise. Need aerobic exercise 5-6 days a week for 30 minutes at a time. Smaller portions and limit total calories. Colonoscopy after age 45. Tetanus every 10 years. Advised not to smoke. Images from the original note were not included. Subjective Patient ID: Berny Rosen is a 34 y.o. male who presents for Annual Exam. Presents for annual PE. Weight down 34 pounds in the past year. Previously on adipex and did well with weight loss. Since has maintained weight but wants to lose more. Active at work but no regular exercise. Tries to watch diet and eat healthy. Increased fruits and vegetables. Smaller portions and limits snacking. Tries to limit total daily calories. Interested in semaglutide. Due for labs. Review of Systems Constitutional: Negative for fatigue. Respiratory: Negative for cough, shortness of breath and wheezing. Cardiovascular: Negative for chest pain and palpitations. Gastrointestinal: Negative for abdominal pain, diarrhea, nausea and vomiting. Genitourinary: Negative for dysuria. Objective Physical Exam Constitutional: General: He is not in acute distress. Appearance: Normal appearance. HENT: Head: Normocephalic. Right Ear: Tympanic membrane and ear canal normal. Left Ear: Tympanic membrane and ear canal normal. Eyes: Extraocular Movements: Extraocular movements intact. Pupils: Pupils are equal, round, and reactive to light. Cardiovascular: Rate and Rhythm: Normal rate and regular rhythm. Heart sounds: No murmur heard. No friction rub. No gallop. Pulmonary: Breath sounds: Normal breath sounds. No wheezing, rhonchi or rales. Abdominal: General: Bowel sounds are normal. There is no distension. Palpations: Abdomen is soft. Tenderness: There is no abdominal tenderness. There is no guarding or rebound. Musculoskeletal: General: Normal range of motion. Left lower leg: No edema. Neurological: General: No focal deficit present. Mental Status: He is alert. Cranial Nerves: No cranial nerve deficit. Deep Tendon Reflexes: Reflexes normal. Assessment/Plan Problem List Items Addressed This Visit Class 3 severe obesity due to excess calories without serious comorbidity with body mass index (BMI) of 50.0 to 59.9 in adult (CMS/HCC) Weight down 34 pounds. Try wegovy. Relevant Medications Semaglutide-Weight Management (Wegovy) 0.25 MG/0.5ML solution auto-injector Annual physical exam - Primary Due for labs. Discussed proper diet and regular aerobic exercise. Need aerobic exercise 5-6 days a week for 30 minutes at a time. Smaller portions and limit total calories. Colonoscopy after age 45. Tetanus every 10 years. Advised not to smoke. Relevant Orders Hemoglobin A1c Basic metabolic panel CBC and differential Hepatic function panel Lipid panel TSH documented in this encounter [facility] Telephone encounter Note 07-07-2024 Telephone Encounter - Pradip Oconnor - 07/07/2024 9:32 AM EDT Note Date & Type Note Facility 07-07-2024 Telephone encount er Note Patient called stating he is experiencing pain to the point he had to leave work today and is unsure if he can work tomorrow. He is wanting to get a work note from you to excuse his absence. [facility] Note 07-07-2024 Telephone Encounter - Pradip Oconnor - 07/07/2024 9:32 AM EDT Note Date & Type Note Facility 07-07-2024 Miscellaneous Notes Formattin g of this note might be different from the original. Patient called stating he is experiencing pain to the point he had to leave work today and is unsure if he can work tomorrow. He is wanting to get a work note from you to excuse his absence. documented in this encounter [facility] History of Present illness Narrative 07-05-2024 Joo Murphy DPM - 07/05/2024 11:15 AM EDT Note Date & Type Note Facility 07-05-2024 History of Presen t illness Narrative Images from the original note were not included. Subjective Patient ID: Berny Rosen is a 34 y.o. male who presents for Follow-up (Pt returns today for FUV Rt foot lateral side painful callus. He feels the cream has helped. He notices it growing back quicker. /SS: 13). HPI Established patient returns to clinic for follow up evaluation of tinea pedis. He completed oral Lamisil with significant improvement in symptoms. He no longer has scaling or peeling skin. Itching has resolved. He has a new concern of a painful lesion on the plantar aspect of the right foot. This has been present for a few months and getting more painful. Review of Systems Constitutional: Negative for activity change and appetite change. Respiratory: Negative for chest tightness and shortness of breath. Cardiovascular: Negative for chest pain. Musculoskeletal: Positive for gait problem. Negative for arthralgias. Skin: Negative for color change, rash and wound. Neurological: Negative for weakness and numbness. Psychiatric/Behavioral: Negative for agitation and behavioral problems. Hematological: Does not bruise/bleed easily. Endocrine: Negative for cold intolerance and heat intolerance. Allergic/Immunologic: Negative for immunocompromised state. Past medical History Past Medical History: Diagnosis Date At low risk for fall Chronic bilateral low back pain with bilateral sciatica Degenerative disc disease at L5-S1 level Lipoma of right upper extremity Morbid obesity with BMI of 50.0-59.9, adult ([facility]) Seborrheic dermatitis Medications Current Outpatient Medications: ammonium lactate (Amlactin) 12 % cream, Apply topically Daily, Disp: 140 g, Rfl: 3 celecoxib (CeleBREX) 200 MG capsule, Take 1 capsule (200 mg) by mouth 2 (two) times a day as needed for mild pain Take with food, Disp: 60 capsule, Rfl: 2 methocarbamol (Robaxin) 750 MG tablet, Take 1 tablet (750 mg) by mouth 4 (four) times a day as needed for muscle spasms, Disp: 60 tablet, Rfl: 1 phentermine (Adipex-P) 37.5 MG tablet, Take 1 tablet (37.5 mg) by mouth in the morning. Take before meals., Disp: 30 tablet, Rfl: 0 Allergies Patient has no known allergies. Past Surgical History No past surgical history on file. Family History Family History Problem Relation Name Age of Onset No Known Problems Mother No Known Problems Father No Known Problems Sister No Known Problems Brother No Known Problems Daughter Blindness Paternal Grandfather Objective Physical Exam Constitutional: General: He is not in acute distress. Appearance: He is obese. HENT: Head: Atraumatic. Cardiovascular: Pulses: Normal pulses. Musculoskeletal: Cervical back: No tenderness. Comments: Pes planus morphology bilaterally. Muscle strength 5/5 for all quadrants bilaterally. Ankle dorsiflexion 0 degrees with the knee extended, flexed bilaterally. Skin: Capillary Refill: Capillary refill takes less than 2 seconds. Comments: Right foot: There is hyperkeratotic tissue with central core noted at the plantar 5th metatarsal base of the right foot. Lesion is tender with direct palpation. Skin lines passed through the lesion. No pinpoint, thrombosed capillaries. Scaling and peeling have resolved. Neurological: General: No focal deficit present. Mental Status: He is alert. Psychiatric: Mood and Affect: Mood normal. Behavior: Behavior normal. Assessment/Plan ICD-10-CM 1. Right foot pain M79.671 2. Porokeratosis Q82.8 3. Tinea pedis of right foot B35.3 Patient was examined and evaluated. Unfortunately he continues to have a lesion consistent with porokeratosis. Recommend a 2nd chemical cauterization treatment today. I have debrided the porokeratotic lesion sharply with a sterile #15 blade and enucleated the lesion until pinpoint bleeding was encountered. The base of the lesion was cauterized with a single 30 second application of 10% phenol. Lesion was packed with 55% salicylic acid and an occlusive offloading dressing was applied. Recommend continuing to use ammonium lactate cream daily. Use pumice stone regularly. Follow up as needed. In regards to the tinea pedis he has responded quite nicely to the oral anti fungal medication. Recommend close follow up of the area. If he notices recurrence recommend [id number] antifungals. If there is severe recurrent symptomatology I recommend close follow up with our office for repeat oral antifungal therapy. Follow up as needed. This note was created with the assistance of a speech recognition program. While intending to generate a timely document that accurately reflects the content of the visit, no guarantee can be provided that every grammatical or spelling mistake has been or will be identified or corrected. Thank you for your understanding. Joo Murphy DPM documented in this encounter [facility] Evaluation note Note Date & Type Note Facility Evaluation note Diagnosis Right foot pain- Primary Pain in soft tissues of limb Porokeratosis Other specified congenital anomaly of skin Tinea pedis of right foot documented in this encounter [facility] Evaluation note Note Date & Type Note Facility Evaluation note Diagnosis Annual physical exam- Primary Routine general medical examination at a health care facility Degenerative disc disease at L5-S1 level Morbid obesity due to excess calories (CMS/[facility]) Change in bowel movement Hypersomnia Hypersomnia, unspecified Body mass index [BMI] 50.0-59.9, adult (Z68.43) Degenerative disc disease at L5-S1 level- Primary JALESEA (obstructive sleep apnea) Obstructive sleep apnea (adult) (pediatric) Morbid obesity due to excess calories (CMS/HCC) Degenerative disc disease at L5-S1 level- Primary [place] or callus Irritable bowel syndrome with diarrhea Irritable bowel syndrome Morbid obesity due to excess calories (CMS/HCC) Degenerative disc disease at L5-S1 level- Primary Irritable bowel syndrome with diarrhea Irritable bowel syndrome JALEESA (obstructive sleep apnea) Obstructive sleep apnea (adult) (pediatric) Morbid obesity due to excess calories (CMS/HCC) Annual physical exam- Primary Routine general medical examination at a health care facility Class 3 severe obesity due to excess calories without serious comorbidity with body mass index (BMI) of 50.0 to 59.9 in adult (CMS/HCC) documented in this encounter [facility] Summary Purpose Family History No Family History Records FoundNo Family History Records Found Advance Directives No Advanced Directives Records FoundNo Advanced Directives Records Found Additional Source Comments (unrecognized sect ion and content) No Status Records FoundNo Status Records Found INFORMATION SOURCE (unrecogn ized section and content) DATE CREATED AUTHOR 10/11/2022 [facility] DATE CREATED AUTHOR AUTHOR'S ORGANIZ ATION 07/06/2024 [facility] Care Teams (unrecognized sec tion and content) Mri Specialist Relationship Specialty Start Date End Date Beto Smith MD [address] [place] [id number] PCP - General Family Medicine 12/05/23 Beto Smtih MD [address] [place] [id number] PCP - [facility] 01/19/24 Mri Specialist Relationship Specialty Start Date End Date Beto Smith MD [address] [place] [address] PCP - General Family Medicine 12/05/23 Beto Smith MD [address] [place] [address] PCP - [facility] 01/19/24 Mri Specialist Relationship Specialty Start Date End Date Beto Smith MD [address] [id number] PCP - General Family Medicine 12/05/23 Beto Smith MD [address] [id number] PCP - [facility] 01/19/24 Mri Specialist Relationship Specialty Start Date End Date Beto Smith MD [address] [phone] PCP - General [facility] 12/05/23 Beto Smith MD [address] [id number] PCP - [employer] [facility] [facility] 01/19/24 Mri Specialist Relationship Specialty Start Date End Date Beto Smith MD [address] [id number] PCP - General [facility] 12/05/23 Beto Smith MD [address] [id number] PCP [employer] [facility] 01/19/24 Reason for Visit (unrecogniz ed section and content) Reason Comments Follow-up Pt returns today for FUV Rt foot lateral side painful callus. He feels the cream has helped. He notices it growing back quicker. SS: 13 Reason Onset Date Comments Advice Only 07/07/2024 Pain - Work Note Reason Comments Annual Exam FOR RECORDS PERTAINING TO PATIENTS WHO ARE [...] BE BASED ON THE PRIMARY CLINICAL RECORDS. [facility]. provides no warranty or guarantee of the accuracy or completeness of information in this document.
[2024-11-04 10:43] LABS: Basophils Absolute Auto 0.1 10^3/uL (0.0-0.1); Basophils Percent Auto 1.2 % (0.2-2.0); Eosinophils Absolute Auto 0.3 10^3/uL (0.0-0.7); Eosinophils Percent Auto 3.5 % (0.9-7.0); Hematocrit 44.3 % (42.0-54.0); Hemoglobin 14.8 g/dL (14.0-18.0); Immature Granulocytes Abs Auto 0.02 10^3/uL (0.00-0.03); Immature Granulocytes Pct Auto 0.2 % (0.0-0.5); Lymphocytes Percent Auto 22.9 % (20.5-60.0); Mean Corpuscular HGB Conc 33.4 g/dL (29.9-35.2); Mean Corpuscular Hemoglobin 29.1 pg (25.9-34.0); Mean Platelet Volume 10.1 fL (9.5-13.5); Monocytes Absolute Auto 0.7 10^3/uL (0.3-0.8); Monocytes Percent Auto 7.9 % (1.7-12.0); Neutrophils Absolute Auto 5.5 10^3/uL (1.4-6.5); Neutrophils Percent Auto 64.3 % (43.0-75.0); Platelet Count 269 10^3/uL (150-450); Red Blood Count 5.09 10^6/uL (4.70-6.10); Red Cell Distribution Width 13.4 % (11.0-15.0); White Blood Count 8.6 10^3/uL (4.0-11.0)
[2024-11-04 11:06] LABS: Estimated Average Glucose 117 mg/dL; Glycohemoglobin A1C 5.7 % (4.5-6.2)
[2024-11-04 11:21] LABS: Alanine Aminotransferase 26 U/L (16-63); Albumin Level 3.6 g/dL (3.4-5.0); Alkaline Phosphatase 124 U/L (46-116); Anion Gap 9.9; Aspartate Amino Transferase 19 U/L (15-37); Bilirubin Direct 0.1 mg/dL (0.0-0.2); Bilirubin Total 0.4 mg/dL (0.2-1.0); Carbon Dioxide 30.7 mmol/L (21.0-32.0); Chloride 104 mmol/L (98-107); Chol HDL Ratio 3.4; Cholesterol 152 mg/dL (<=200); Estimated GFR (African America >60 (>=60 mL/min/1.73m^2); Estimated GFR (Non-African Ame >60 (>=60 mL/min/1.73m^2); Globulin 3.7 g/dL; Glucose 101 mg/dL (74-106); HDL Cholesterol 45 mg/dL (40-60); Potassium 4.6 mmol/L (3.5-5.1); Sodium 140 mmol/L (136-145); Thyroid Stimulating Hormone 0.476 uIU/mL (0.358-3.740); Total Protein 7.3 g/dL (6.4-8.2); Triglycerides 60 mg/dL (<=150)
== END 2024-11-04 09:55 | disposition home or self-care (01) ==
LOC: LAB 09:55
PROVIDERS: PCP Family Medicine; Visit Provider Family Medicine
DX: Z00.00 Encounter for general adult medical examination without abnormal findings (principal)
CPT/HCPCS: 36415; 80048; 80061; 80076; 83036; 84443; 85025